=== PATIENT | female | born 1980 | race African-American/Black ===

== ENCOUNTER 2017-12-14 19:43 | Emergency (ER) | payer SELFPAY ==
[~2017-12-14] VITALS: Ht 162.6 cm; Wt 73.0 kg
[2017-12-14 20:00] VITALS: BP 114/81
== END 2017-12-14 22:36 | disposition left against medical advice (07) ==
LOC: ER 19:43
DX: S01.81XA Laceration without foreign body of other part of head, initial encounter (principal); X58.XXXA Exposure to other specified factors, initial encounter; Y93.89 Activity, other specified; Y92.89 Other specified places as the place of occurrence of the external cause; Y99.8 Other external cause status; Z53.21 Procedure and treatment not carried out due to patient leaving prior to being seen by health care provider

== ENCOUNTER 2017-12-15 16:16 | Emergency (ER) | payer SELFPAY ==
[~2017-12-15] VITALS: Ht 160 cm; Wt 70.0 kg
[2017-12-15 16:30] VITALS: BP 113/72
== END 2017-12-15 20:35 | disposition left against medical advice (07) ==
LOC: ER 18:11
DX: Z53.21 Procedure and treatment not carried out due to patient leaving prior to being seen by health care provider (principal)